=== PATIENT | female | born 1985 | race Caucasian/White ===

== ENCOUNTER 2020-06-18 21:05 | Emergency (ER) | payer OTHER, SELFPAY ==
[2020-06-18] VITALS (19 sets, daily range): BP systolic 132–158; BP diastolic 80–104; PULSE 71–110; RESP 11–22; TEMP 37.2; O2SAT 98–100
[2020-06-18] MEDS: FAMOTIDINE 20 MG/2 ML VIAL IV PUSH (21:26)
[2020-06-18] MEDS: ONDANSETRON INJ 4 MG/2 ML VIAL IV PUSH (21:26)
[2020-06-18] MEDS: SODIUM CHLORIDE 0.9% IV 1,000 ML 999 ML IV CONT (21:27)
--- NOTE | 2020-06-18 21:57 | ED.GENADULT ---
HPI - General Adult General Chief complaint: Nausea/Vomiting/Diarrhea Stated complaint: n/v Time Seen by Provider: 06/18/20 21:08 Source: patient and family Mode of arrival: EMS Limitations: no limitations History of Present Illness HPI narrative: Patient is a 34-year-old female who presents to emergency department with acute onset of nausea vomiting chills sweats fatigue that began acutely this evening unable to tolerate p.o. intake since onset denies pain on arrival per EMS denies any other complaints other than the emesis appears to be uncomfortable on arrival but in no distress denies similar occurrence in the past Related Data Home Medications Medication Instructions Recorded Confirmed amlodipine 06/18/20 chlorthalidone 06/18/20 escitalopram oxalate mg 06/18/20 norgestimate-ethinyl estradiol tablet 06/18/20 06/18/20 [Sprintec (28)] Allergies Allergy/AdvReac Type Severity Reaction Status Date / Time Penicillins Allergy Mild DOESN'T Verified 06/19/20 00:05 KNOW/ A CHILD Review of Systems Review of Systems: All systems reviewed & are unremarkable except as noted in HPI and below PMFSH Past Medical History Medical History (Updated 06/19/20 @ 01:34 by Jake Jon PA-C) Hypertension Exam Narrative: Exam Narrative: GENERAL: Ill -appearing, well-nourished, and in no acute distress. HEAD: Normocephalic, atraumatic. EYES: PERRLA and EOMI. ENT: Nares clear, no rhinorrhea or epistaxis. Mucous membranes moist. NECK: Supple. No adenopathy or masses. CHEST: Clear to auscultation. No respiratory distress. No wheezes rales or rhonchi HEART: Regular rate and rhythm. No murmur heard. Normal peripheral pulses. ABDOMEN: Soft, nontender, nondistended EXTREMITIES: Normal range of motion. No edema. SKIN: Warm, dry, no rash. NEURO: No focal deficits. Alert and oriented x3. PSYCH: Normal mood and affect. Course Course Emergency Course: Patient in the room in no distress aware of case findings treatment plan diagnosis agreeing to follow-up as directed tolerating p.o. intake was hydrated given antiemetics patient's leukocytosis likely due to demargination from stress and vomiting nontender abdominal exams patient feels comfortable to go home and has been provided with reasons to return with improved condition with medications Vital Signs Vital signs: Vital Signs Temperature 98.9 F 06/18/20 21:30 Pulse Rate 110 H 06/18/20 21:30 Respiratory Rate 22 H 06/18/20 21:30 Blood Pressure 144/98 H 06/18/20 21:30 Pulse Oximetry 98 06/18/20 21:30 Temperature 98.9 F 06/18/20 21:30 Pulse Rate 84 06/19/20 01:19 Respiratory Rate 17 06/19/20 01:19 Blood Pressure 110/69 06/19/20 01:19 Pulse Oximetry 94 06/19/20 00:00 Medical Decision Making MDM Narrative Medical decision making narrative: As in the course patient was evaluated emesis resolved resting comfortably in the room in no distress felt appropriate for discharge home provided with reasons to return marked improvement with fluids and medications nontender abdominal exams Vital Signs Vital Signs: Vital Signs Temperature 98.9 F 06/18/20 21:30 Pulse Rate 110 H 06/18/20 21:30 Respiratory Rate 22 H 06/18/20 21:30 Blood Pressure 144/98 H 06/18/20 21:30 Pulse Oximetry 98 06/18/20 21:30 Temperature 98.9 F 06/18/20 21:30 Pulse Rate 84 06/19/20 01:19 Respiratory Rate 17 06/19/20 01:19 Blood Pressure 110/69 06/19/20 01:19 Pulse Oximetry 94 06/19/20 00:00 Lab Data Result diagrams: 06/18/20 22:06 06/18/20 22:58 Labs: Lab Results 06/18/20 06/18/20 06/18/20 Range/Units 22:06 22:45 22:58 WBC 16.7 H (4.5-10.0) K/mm3 RBC 4.17 L (4.2-5.4) M/mm3 Hgb 11.7 L (12.0-15.0) g/dL Hct 34.8 L (37.0-47.0) % MCV 83.5 (80-100) fl MCH 28.1 (26-34) pg MCHC 33.6 (32-36) g/dl RDW 13.8 (11.5-14.5) % Plt Count 331 (150-375) k/m
[2020-06-18] MEDS: LACTATED RINGERS 1,000 ML 999 ML IV CONT (22:02)
[2020-06-18] MEDS: diphenhydrAMINE HCl INJ 50 MG/ML VIAL 25 MG IV PUSH (22:03)
[2020-06-18] MEDS: METOCLOPRAMIDE HCL INJ 10 MG/2 ML VIAL (22:05)
--- NOTE | 2020-06-18 22:05 | PC.NURSE ---
patient assisted to use bedpan. urine specimen collected and sent to lab. POC pending at bedside. LR infusing. additional meds for nausea given. patient seems better after 2nd round of IV meds. mother in room. reviewed with patient to wear her mask if not vomiting. mother has mask pulled down also. advised both patient and mother N/V are initial signs of possible covid.
[2020-06-18 22:16] LABS: Basophils Percent Auto 0.2 % (0.2-1.2); Eosinophils Percent Auto 0.1 % (0-4.4); Hematocrit 34.8 % (37.0-47.0); Hemoglobin 11.7 g/dL (12.0-15.0); Immature Granulocyte Absolute 0.07 K/mm3 (0.00-0.031); Immature Granulocyte Percent A 0.4 % (0-0.5); Lymphocytes Absolute Auto 0.96 K/mm3 (0.9-3.2); Lymphocytes Percent Auto 5.8 % (18.3-44.2); Mean Corpuscular HGB Conc 33.6 g/dl (32-36); Mean Corpuscular Hemoglobin 28.1 pg (26-34); Mean Corpuscular Volume 83.5 fl (80-100); Mean Platelet Volume 10.9 fl (7.4-10.4); Monocytes Absolute Auto 0.7 K/mm3 (0.1-0.6); Monocytes Percent Auto 3.9 % (2.6-8.5); Neutrophils Percent Auto 89.6 % (45.5-73.1); Platelet Count Result 331 k/mm3 (150-375); Red Blood Count 4.17 M/mm3 (4.2-5.4); Red Cell Distribution Width 13.8 % (11.5-14.5); White Blood Count 16.7 K/mm3 (4.5-10.0)
[2020-06-18 22:57] LABS: Add Urine Microscopic? YES; Appearance Urine Clear (Clear); Bilirubin Urine Negative (Negative); Blood Urine Negative (Negative); Color Urine Yellow (Yellow); Glucose Urine UA Negative (Negative); Ketones Urine 2+ mg/dL (Negative); Leukocyte Esterase Ur Negative LEU/UL (Negative); Mucus Urine Rare /lpf; Nitrate Urine Negative (Negative); Protein Urine 1+ mg/dL (Negative); Squamous Epithelial Cell Urine Many /hpf (Few); Urobilinogen Urine Negative mg/dL (<2.0); WBC Urine 0-3 /hpf
[2020-06-18 22:59] LABS: Specific Grav Ur 1.031 (1.001-1.035)
[2020-06-18 23:14] LABS: Alanine Aminotransferase 20 U/L (4-35); Albumin Level 3.8 g/dL (3.5-5.1); Alkaline Phosphatase 39 U/L (38-126); Anion Gap 12 mmol/L (8-16); Aspartate Amino Transferase 34 U/L (14-36); Bilirubin,Total 0.6 mg/dL (0.2-1.3); Blood Urea Nitrogen 16 mg/dL (7-17); Calcium 8.6 mg/dL (8.4-10.2); Carbon Dioxide 19 mmol/L (22-30); Chloride 105 mmol/L (98-107); Estimated CRCL calculation 89 ml/min; Estimated Glomerular Filt Rate > 60; Glucose 127 mg/dL (65-105); Lipase 42 U/L (23-300); Potassium 3.2 mmol/L (3.4-5.0); Sodium 136 mmol/L (137-145)
--- NOTE | 2020-06-18 23:25 | PC.NURSE ---
report given to Swathi LACEY.
[2020-06-19] VITALS (8 sets, daily range): BP systolic 110–156; BP diastolic 69–97; PULSE 75–94; RESP 12–19; O2SAT 94–100
[2020-06-19] MEDS: SODIUM CHLORIDE 0.9% IV 1,000 ML 999 ML IV CONT (00:06)
[2020-06-19] MEDS: ONDANSETRON INJ 4 MG/2 ML VIAL IV PUSH (00:07)
[2020-06-19] MEDS: LORazepam INJ (*CRX) 2 MG/ML VIAL 1 MG IV PUSH (00:13)
== END 2020-06-19 02:05 | disposition home or self-care (01) ==
PROVIDERS: Emergency Medicine Emergency Medical Services; Emergency Provider Emergency Medicine; PCP Family Medicine
DX: R11.2 Nausea with vomiting, unspecified (principal); I10 Essential (primary) hypertension
CPT/HCPCS: 36415; 80053; 81001; 81025; 83690; 85025; 96361; 96365; 96374; 96375; 99284; J0131; J1200; J2060; J2405; J2765; J7030; J7120

== ENCOUNTER 2021-03-17 13:37 | Emergency (ER) | payer SELFPAY ==
[2021-03-17 13:44] VITALS: BP 144/108; PULSE 94; RESP 12; TEMP 36.7; O2SAT 100
--- NOTE | 2021-03-17 13:48 | ED.WOUNDLAC ---
HPI - Wound/Laceration General Chief Complaint: Wound/Laceration Stated Complaint: lt hand laceration Time Seen by Provider: 03/17/21 13:48 Source: patient and RN notes reviewed Mode of arrival: ambulatory Limitations: no limitations History of Present Illness HPI narrative: 35-year-old female presents with concern for laceration to the left hand. Reports she sustained just prior to arrival on a piece of glass. Reports its continued to bleed. Denies any decreased sensation, strength, range of motion in the hand or digits. She is not up-to-date on tetanus vaccination Extremity Location: Right: hand Related Data Home Medications Medication Instructions Recorded Confirmed amlodipine 06/18/20 chlorthalidone 06/18/20 escitalopram oxalate mg 06/18/20 norgestimate-ethinyl estradiol tablet 06/18/20 06/18/20 [Sprintec (28)] Allergies Allergy/AdvReac Type Severity Reaction Status Date / Time Penicillins Allergy Mild DOESN'T Verified 06/19/20 00:05 KNOW/ A CHILD Review of Systems Review of Systems: CONSTITUTIONAL: Denies malaise, chills, sweats, or fever. SKIN: Reports laceration to the left hand MUSCULOSKELETAL: Denies musculoskeletal pain, decreased range of motion NEUROLOGIC: Denies numbness, weakness. All systems reviewed & are unremarkable except as noted in HPI and below PMFSH Past Medical History Medical History (Updated 03/17/21 @ 13:55 by Katherine Renteria NP) Hypertension Comments At time of signature, agree with nursing past medical, surgical, social and family history. There is no relevant family history pertinent to the presenting complaint Exam Narrative: GENERAL: Well-appearing, well-nourished, and in no acute distress. HEAD: Normocephalic EYES: PERRLA, conjunctivae clear NECK: Supple. CHEST: Speaks in full sentences. No respiratory distress. HEART: Regular rate and rhythm. Normal and equal peripheral pulses. EXTREMITIES: Left hand and digits of hand have normal strength and sensation. 5/5 strength with digit flexion, extension. Range of motion normal. No clubbing, cyanosis, or edema noted. No tenderness. Normal digital cascade with flexion of fingers, median, ulnar and radial nerve intact. Normal sensation of each side of finger. Can perform 'okay' sign, 'cross over finger test of index and middle fingers' and 'thumbs up' sign. No scissoring. Normal thumb opposition. Good capillary refill and radial pulse. Distal capillary refill less than 3 seconds. SKIN: Warn, dry, intact, pink. No rash. 2 cm linear laceration noted to the palmar aspect of the left hand beneath the first digit NEURO: Alert and oriented x3. PSYCH: Normal mood and affect Extrem: Hand/finger images: 1. Laceration into the subcutaneous tissue edges not approximated Course Course Emergency Course: Patient is aware of diagnosis, understands and agrees to treatment plan. Anticipatory guidance given. Patient agrees to follow-up as directed and is aware of reasons to seek care at the emergency department. Portions of this record may have been created with voice recognition software Vital Signs Vital signs: Reviewed. Patient has history of hypertension Procedures Laceration Laceration 1: Date: 03/17/21 Site: hand Side (If applicable): left Size (cm): 2 Description: linear Depth: simple, single layer Local Anesthetic: lidocaine 1% Amount of anesthesia used (mL): 3 Pre-repair: wound explored and irrigated ====== Skin Level ====== Skin layer closed with: nylon Size (cm): 4-0 Number of sutures: 4 Technique: simple, interrupted ====== Subcutaneous Layer ====== ====== Muscle Layer ====== ====== Tendon Layer ====== MDM - Wound/Laceration MDM Narrative Medical decision making narrative: Wound explored for foreign body and copious irrigation provided with no evidence of FB. Discussed the potential of christine
[2021-03-17] MEDS: LIDOCAINE, EPINEPHRINE, TETRACAINE VISCOUS SOLN 3 ML TOPICAL (13:58)
[2021-03-17] MEDS: TETANUS,DIPHTHERIA,AC PERTUSSIS ADULT (0.5 ML) BOOSTRIX IM (14:31)
== END 2021-03-17 14:35 | disposition home or self-care (01) ==
PROVIDERS: Emergency Provider Nurse Practitioner; PCP Family Medicine
DX: S61.412A Laceration without foreign body of left hand, initial encounter (principal); W25.XXXA Contact with sharp glass, initial encounter; Z23 Encounter for immunization; I10 Essential (primary) hypertension
CPT/HCPCS: 12001; 90471; 90715; 99212; G0463